=== PATIENT | female | born 1935 | race Caucasian/White ===

== ENCOUNTER 2017-10-17 06:55 | Day surgery (SDC) | payer MEDICARE ==
[~2017-10-17] VITALS: Ht 165.1 cm; Wt 83.0 kg
[~2017-10-17 06:55] MED LIST: BACTRIM DS1 TAB PO; CELEBREX200 MG PO; CELEXA40 M1 PO; CRANBERRY PO; FOSAMAX PLUS PO; LASIX 20 MG20 MG/TAB PO; LEVOTHYROXIN112 MC1 PO; MACULAR HEALTH1 CAP PO; MELATONIN5 M3 PO; MELOXICAM15 MG PO; METOPROLOL SUCC25 MG PO; MULTIVITAMI9 PO; OMEPRAZOLE20 M1 PO; PEPCID20 MG PO; PRAVASTATIN40 MG PO; PREVAGEN10 MG PO; ROBITUSSIN AC10 ML PO; STERAPRED DS10 MG PO; SYNTHROID150 MCG PO; SYNTHROID88 MCG PO; VIACTIV PO; ZESTRIL10 M1 PO; ZPAK PO; [UNRECOGNIZED DRUG - OTHER] PO
[2017-10-17 09:58] VITALS: BP 139/57
== END 2017-10-17 10:11 | disposition home or self-care (01) ==
LOC: ENDO 06:55 → ORM 08:00 → ENDO 08:00
PROVIDERS: ATTEND Surgery
PROC: 0DB78ZX Excision of Stomach, Pylorus, Via Natural or Artificial Opening Endoscopic, Diagnostic (ICD-10-PCS; principal; 2017-10-17)
PROC: 0DBN8ZX Excision of Sigmoid Colon, Via Natural or Artificial Opening Endoscopic, Diagnostic (ICD-10-PCS; 2017-10-17)
DX: D50.9 Iron deficiency anemia, unspecified (principal); R19.5 Other fecal abnormalities; K44.9 Diaphragmatic hernia without obstruction or gangrene; K29.50 Unspecified chronic gastritis without bleeding; K63.5 Polyp of colon; K57.30 Diverticulosis of large intestine without perforation or abscess without bleeding; I48.91 Unspecified atrial fibrillation; I10 Essential (primary) hypertension; E78.00 Pure hypercholesterolemia, unspecified; M19.90 Unspecified osteoarthritis, unspecified site; E04.1 Nontoxic single thyroid nodule

== ENCOUNTER 2018-12-06 14:39 | Observation (INO) | payer MEDICARE ==
[~2018-12-06] VITALS: Ht 165.1 cm; Wt 84.0 kg
[2018-12-06] MEDS ORDERED: MULTAQ400 MG PO (15:05)
--- NOTE | 2018-12-06 15:06 | NUR ---
PT CAME TO ER WITH COMPLAINT OF SEVERE MID BACK PAIN THAT HAD STARTED SINCE YESTERDAY AND LEFT SIDE CHEST PAIN THAT WAS OFF AND ON SINCE THIS AM. PT STATES WAS STARTED ON A NEW MEDICATIONS FOR SYMPTOMS OF FEELING LIKE SHE WAS GOING TO "PASS OUT" LAST WEEK, AND IS SUPPOSE TO GET A LINK HOOP IMPLANT NEXT SUNDAY FOR HEART.
[2018-12-06 15:07] LABS: HEMATOCRIT 40.3 % (37.0-47.0); HEMOGLOBIN 12.8 g/dl (12.0-16.0); IMMATURE GRANULOCYTES 0.1 % (0.0-5.0); MEAN CELL VOLUME 90.6 fL CALC (80.0-100.0); MEAN CORPUSCULAR HGB 28.8 pG CALC (26.0-32.0); MEAN CORPUSCULAR HGB CONC 31.8 g/L CALC (32.0-36.0); NEUT# 4.82 thou/uL (2.00-7.15); RED BLOOD COUNT 4.45 mill/uL (4.20-5.60); RED CELL DISTRI WIDTH 13.5 % (11.5-15.5)
[2018-12-06 15:31] LABS: ALBUMIN 4.2 g/dL (3.2-5.0); ALKALINE PHOSPHATASE 83 u/l (38-126); ANION GAP 14 (6-22 (CALC)); BILIRUBIN, TOTAL 0.5 mg/dL (0.0-1.4); BUN 34 mg/dL (8-23); BUN/CREATININE RATIO 27 (12-20 (CALC)); CARBON DIOXIDE 28 mmol/l (22-30); CHLORIDE 102 mmol/l (95-108); CREATININE 1.3 mg/dL (0.5-1.0); GFR 39 ML/MIN (>=60 (CALC)); GFR FOR AFR.AMER. 48 ML/MIN (>=60 (CALC)); POTASSIUM 3.8 mmol/l (3.5-5.1); SGOT/AST 27 u/l (9-36); SODIUM 140 mmol/l (137-146)
--- NOTE | 2018-12-06 16:08 | NUR ---
PT RESTING QUIETLY, DENIES ANY MORE CHEST PAIN, STATES BACK PAIN IS EASING UP A LITTLE TODAY
--- NOTE | 2018-12-06 16:46 | NUR ---
PT STATES AFTER MORPHINE PAIN IS DOWN TO A 2
--- NOTE | 2018-12-06 17:28 | NUR ---
PT RESTING QUIETLY ON STRETCHER WITH FAMILY AT BEDSIDE.
--- NOTE | 2018-12-06 17:29 | NUR ---
NO CHEST PAIN SINCE ARRIVAL, PT STATES BACK PAIN HAS EASED UP TO A 2.
--- NOTE | 2018-12-06 17:50 | NUR ---
PT ARRIVED VIA STRETCHER ACCOMPANIED BY STAFF. IV SITE IS FREE FROM REDNESS OR EDEMA. AT 1750. TELE MONITOR IN PLACE. PT AMBULATED TO THE BATHROOM. FAMILY IN THE ROOM
--- NOTE | 2018-12-06 17:57 | NUR ---
REPORT GIVEN TO NASRIN TELLO. PT TAKEN TO MED SURG WITH TELEMENTRY .
--- NOTE | 2018-12-06 18:00 | NUR ---
ASSESSMENT IS COMPLETED: HR IS REG,PULSES ARE STRONG X4, ABD IS SOFT WITH ACTIVE BS. IV SITE IS FREE FROM REDNESS OR EDEMA. BREATH SOUNDS ARE CLEAR, BILATERALLY. NO C/O SOB, TELE MONITOR IN PLACE. CONTINUE TO OSBERVE AND MONITOR. PT'S HOME MED IS IN THE MED ROOM.
--- NOTE | 2018-12-06 19:00 | NUR ---
RECEIVED REPORT FROM DAY SHIFT NURSE. PT IS RESTING IN BED WAtchING TV. NO NEEDS AT THIS TIME. CALL CASPER IN REACH. WILL CONTINUE TO MONITOR.
[2018-12-06 19:49] VITALS: BP 116/50
--- NOTE | 2018-12-06 20:14 | NUR ---
PT IS READING HER BOOK AT THIS TIME. A&0 X3. ASSESMENT COMPLETED AT THIS TIME. IV FLUSHES WELL. NO COMPLAINTS OF PAIN AT THIS TIME. NO NEEDS. CALL CASPER IN REACH. WILL CONTINUE TO MONITOR.
[2018-12-06 23:51] VITALS: BP 111/55
--- NOTE | 2018-12-07 | NUR ---
PT RESTING IN BED WITH EYES CLOSED. NO S/S OF DISTRESS NOTED. CALL CASPER IN REACH. WILL CONTINUE TO MONITOR.
--- NOTE | 2018-12-07 04:00 | NUR ---
PT RESTING IN BED AT THIS TIME. NO S/S OF DISTRESS NOTED. CALL CASPER IN REACH. WILL CONTINUE TO MONITOR.
[2018-12-07 04:07] VITALS: BP 140/59
[2018-12-07 05:52] LABS: HEMATOCRIT 36.2 % (37.0-47.0); HEMOGLOBIN 11.5 g/dl (12.0-16.0); IMMATURE GRANULOCYTES 0.2 % (0.0-5.0); MEAN CELL VOLUME 90.5 fL CALC (80.0-100.0); MEAN CORPUSCULAR HGB 28.8 pG CALC (26.0-32.0); MEAN CORPUSCULAR HGB CONC 31.8 g/L CALC (32.0-36.0); NEUT# 3.23 thou/uL (2.00-7.15); RED CELL DISTRI WIDTH 13.7 % (11.5-15.5)
[2018-12-07 06:15] LABS: CREATININE 1.2 mg/dL (0.5-1.0); POTASSIUM 3.9 mmol/l (3.5-5.1)
--- NOTE | 2018-12-07 07:15 | NUR ---
PT RESTING IN BED, NO SIGNS OF DISTRESS NOTED, DENIES CP AT THIS TIME. PT ALERT AND ORIENTED X3, NO EDEMA. DISCUSSED POC, PT STATES SHE WILL BE F/U WITH A PHYSICIAN REFERRED BY IN [place] FOR A "LOOP PLACEMENT". ASSESSMENT COMPLETED, PT VOICES NO NEEDS OR COMPLAINTS AT THIS TIME, CALL LIGHT IN REACH,CONTINUE TO MONITOR.
[2018-12-07 08:20] VITALS: BP 116/50
[2018-12-07 08:21] VITALS: BP 116/50
--- NOTE | 2018-12-07 08:41 | NUR ---
PT C/O PAIN TO HER L SHOULDER MEDICATED WITH TYLENOL, PER PT REQUEST. CALL LIGHT IN REACH,CONTINUE TO MONITOR.
--- NOTE | 2018-12-07 11:16 | NUR ---
PT RESTING IN BED, WITH EYES CLOSED, VISITOR AT BEDSIDE, NO SIGNS OF DISTRESS NOTED, RESP EVEN AND UNLABORED. CALL LIGHT IN REACH,CONTINUE TO MONITOR.
--- NOTE | 2018-12-07 14:28 | NUR ---
PT STATES SHE FEELS BETTER AFTER SOLUMEDROL, RECRUITMENT INTERN TO BEDSIDE, TO DISCUSS PLANS FOR DISCHARGE.
[2018-12-07] MEDS ORDERED: TRAMADOL HYDROC50 MG PO (15:40)
--- NOTE | 2018-12-07 15:55 | NUR ---
DISCUSSED DISCHARGE INFORMATION, PT IN AGREEMENT. IV SITE REMOVED, CATHETER INTACT. PRESCRIPTIONS GIVEN TO PT, INSTRUCTED TO RETURN IN 1WK FOR LAB DRAW. PT IN AGREEMENT. FAMILY CALLED FOR PICKUP, CONTINUE TO MONITOR.
--- NOTE | 2018-12-07 16:10 | NUR ---
Discharge instructions given. Patient verbalizes understanding of same. Discharged in stable condition via Wheelchair to Home with family. All belongings sent with pt.
== END 2018-12-07 16:10 | disposition home or self-care (01) ==
LOC: ED 14:39 → ED-I 17:00 → ED 17:09 → MS2 17:10
PROVIDERS: Family Medicine; ADMIT Internal Medicine; ATTEND Internal Medicine
DX: R07.81 Pleurodynia (principal); M79.18 Myalgia, other site; N17.9 Acute kidney failure, unspecified; E86.0 Dehydration; N18.3 Chronic kidney disease, stage 3 (moderate); I48.0 Paroxysmal atrial fibrillation; I49.1 Atrial premature depolarization; E78.5 Hyperlipidemia, unspecified; E03.9 Hypothyroidism, unspecified; M81.0 Age-related osteoporosis without current pathological fracture; Z79.82 Long term (current) use of aspirin; Z79.01 Long term (current) use of anticoagulants
CPT/HCPCS: G0378

== ENCOUNTER 2022-12-19 16:35 | Emergency (ER) | payer MEDICARE ==
[~2022-12-19] VITALS: Ht 165.1 cm; Wt 72.0 kg
[~2022-12-19 16:35] MED LIST changes: +MULTAQ400 MG PO; +TRAMADOL HYDROC50 MG PO
[2022-12-19 17:33] VITALS: BP 155/63
[2022-12-19 18:00] VITALS: BP 143/56
[2022-12-19 18:47] LABS: BASO% 0.4 % (0-3); EOS% 0.3 % (0-8); HEMATOCRIT 36.9 % (37.0-47.0); HEMOGLOBIN 11.7 g/dl (12.0-16.0); IMMATURE GRANULOCYTES 0.3 % (0.0-5.0); LYMPH% 6.4 % (15-41); MEAN CELL VOLUME 88.7 fL CALC (80.0-100.0); MEAN CORPUSCULAR HGB 28.1 pG CALC (26.0-32.0); MEAN CORPUSCULAR HGB CONC 31.7 g/dL CAL (32.0-36.0); MONO% 6.5 % (2-13); NEUT# 5.83 thou/uL (2.00-7.15); NEUT% 86.1 % (42-76); RED BLOOD COUNT 4.16 mill/uL (4.20-5.60); RED CELL DISTRI WIDTH 13.4 % (11.5-15.5)
[2022-12-19 18:55] LABS: ALBUMIN 3.9 g/dL (3.2-5.0); ANION GAP 9 (6-22 (CALC)); BUN 15 mg/dL (8-23); BUN/CREATININE RATIO 20 (12-20 (CALC)); CARBON DIOXIDE 31 mmol/l (22-30); CHLORIDE 100 mmol/l (95-108); CREATININE 0.7 mg/dL (0.5-1.0); GFR FOR AFR.AMER. > 60 ML/MIN (>=60 (CALC)); GFR OTHER RACES > 60 ML/MIN (>=60 (CALC)); POTASSIUM 3.7 mmol/l (3.5-5.1); SODIUM 136 mmol/l (137-146); TOTAL PROTEIN 6.6 g/dL (6.3-8.2)
[2022-12-19 18:57] LABS: ALKALINE PHOSPHATASE 130 u/l (38-126); BILIRUBIN, TOTAL 0.5 mg/dL (0.02-1.3); SGOT/AST 71 u/l (9-36)
[2022-12-19] MEDS ORDERED: PAXLOVID PO (19:34)
[2022-12-19] MEDS ORDERED: ZPAK PO (19:34)
[2022-12-19 19:54] VITALS: BP 143/56
== END 2022-12-19 20:15 | disposition home or self-care (01) ==
LOC: ED 16:35
PROVIDERS: Family Medicine
DX: U07.1 COVID-19 (principal); R06.02 Shortness of breath; R05.9 Cough, unspecified; I10 Essential (primary) hypertension; E03.9 Hypothyroidism, unspecified; E78.5 Hyperlipidemia, unspecified

== ENCOUNTER 2024-11-18 09:16 | Emergency (ER) | payer MEDICARE ==
[~2024-11-18] VITALS: Ht 165.1 cm; Wt 65.0 kg
[2024-11-18] VITALS (20 sets, daily range): BP systolic 129–159; BP diastolic 44–71
[~2024-11-18 09:16] MED LIST changes: +COZAAR25 MG PO; +CVS OMEPRAZOLE20 MG PO; +JANUVIA50 MG PO; +MACROBID100 M1 PO; +ONDANSETRON4 MG PO; +OXYBUTYNIN CHLOR5 M2 PO; +PAXLOVID PO; +TRAZODONE50 MG PO; +ZOFRAN4 MG/TAB PO
[2024-11-18 09:44] LABS: URINE BILIRUBIN - DIPSTICK Negative (NEGATIVE); URINE BLOOD DIPSTICK Trace-intact (NEGATIVE); URINE GLUCOSE - DIPSTICK Negative (NEGATIVE); URINE KETONE Trace mg/dL (NEGATIVE); URINE NITRITE - DIPSTICK Negative (Negative); URINE PROTEIN - DIPSTICK Negative (NEG-TRACE); URINE SPECIFIC GRAVITY 1.015; URINE UROBILINOGEN - DIPSTICK 0.2 E.U./dL (0.2)
[2024-11-18 09:47] LABS: ALBUMIN 3.8 g/dL (3.2-5.0); POTASSIUM 4.3 mmol/l (3.5-5.1); TOTAL PROTEIN 6.6 g/dL (6.3-8.2)
[2024-11-18 09:51] LABS: BILIRUBIN, TOTAL 0.6 mg/dL (0.02-1.3)
[2024-11-18 09:51] LABS: URINE COLOR Yellow; URINE LEUK ESTERASE Small (NEGATIVE)
[2024-11-18 09:53] LABS: URINE BACTERIA FEW hpf; URINE RBC 0-2 RBC/hpf (0-5); URINE SQUAMOUS EPITHELIAL CELL RARE EPI/hpf (0-FEW)
[2024-11-18 09:57] LABS: BASO% 0.5 % (0-3); EOS% 2.8 % (0-8); HEMATOCRIT 40.3 % (37.0-47.0); HEMOGLOBIN 12.5 g/dl (12.0-16.0); IMMATURE GRANULOCYTES 0.2 % (0.0-5.0); MEAN CELL VOLUME 91.8 fL CALC (80.0-100.0); MEAN CORPUSCULAR HGB 28.5 pG CALC (26.0-32.0); MONO% 5.7 % (2-13); NEUT# 4.45 thou/uL (2.00-7.15); NEUT% 69.8 % (42-76); RED BLOOD COUNT 4.39 mill/uL (4.20-5.60); RED CELL DISTRI WIDTH 14.5 % (11.5-15.5)
[2024-11-18] MEDS ORDERED: CEPHALEXIN500 M1 PO (15:24)
== END 2024-11-18 15:47 | disposition home or self-care (01) ==
LOC: ED 09:16
PROVIDERS: Family Medicine
DX: N39.0 Urinary tract infection, site not specified (principal); I10 Essential (primary) hypertension; E11.9 Type 2 diabetes mellitus without complications; I25.10 Atherosclerotic heart disease of native coronary artery without angina pectoris